=== PATIENT | female | born 1940 | race Two or more races ===

== ENCOUNTER 2023-11-13 21:00 | Emergency (ER) | payer MEDICARE, OTHER, SELFPAY ==
[2023-11-13 21:03] VITALS: BP 188/73; BMI 27.1
[2023-11-13 21:04] VITALS: BP 188/73
[2023-11-13 21:23] LABS: Hematocrit 31.3 % (37.0-47.0); Hemoglobin 10.8 g/dL (12.0-16.0); Mean Corp Hgb Conc. 34.5 g/dL (33.0-37.0); Mean Corpuscular Hgb 27.2 pg (27.0-31.0); Mean Corpuscular Volume 78.8 fL (81.0-99.0); Mean Platelet Volume 11.7 fL (7.4-10.4); Platelet Count 212 10^3/uL (130-400); Red Blood Cell Count 3.97 10^6/uL (4.20-5.40); Red Cell Dist. Width 13.3 % (11.5-14.5)
[2023-11-13 21:44] LABS: ALT (SGPT) 16 U/L (0-35); AST (SGOT) 34 U/L (14-36); Albumin 4.6 g/dl (3.5-5.0); Alkaline Phosphatase 78 U/L (38-126); Blood Urea Nitrogen 21 mg/dl (7-17); Calcium 9.8 mg/dl (8.4-10.2); Carbon Dioxide 24 mmol/L (22-30); Chloride 101 mmol/L (98-107); Estimated Creatinine Clearance 55 ml/min; Glucose 140 mg/dl (70-99); Potassium 4.9 mmol/L (3.5-5.1); Sodium 140 mmol/L (135-145); Total Bilirubin 0.6 mg/dl (0.2-1.3); Total Protein 7.8 g/dl (6.3-8.2); eGFR > 60.00
[2023-11-13 21:53] LABS: Troponin I < 0.012 ng/ml
[2023-11-13 22:00] VITALS: BP 150/50
--- NOTE | 2023-11-13 22:28 | ED.GENMED ---
History of Present Illness
<Karen Poe PA-C - Last Filed: 11/14/23 00:41>
General
Chief Complaint: Chest Pain
Source: patient and family (Daughter and son-in-law at bedside)
Exam Limitations: none
Time Seen by Provider: 11/13/23 22:08
Nursing documentation reviewed up to this point in time: agreed with
History of Present Illness
History of Present Illness:
Patient is an 83-year-old female with history hypertension, hyperlipidemia, diabetes presenting to the emergency department via EMS for evaluation of chest pain. Patient states that she was standing up cooking dinner when she felt a fluttering
sensation in her lower chest/epigastric region. She checked her blood pressure at that time and it was elevated in the 170s/70s. Patient then states that about 30 minutes later when they were sitting down eating dinner she started with a vague
discomfort in her mid chest. Patient denies any radiation of pain into her shoulder, jaw, back. Patient denies any exertional or pleuritic component to pain. She describes it as a constant pain that persisted until she arrived to the emergency
department. Patient denies any associated shortness of breath, lightheadedness, dizziness, nausea, vomiting, or diaphoresis.
At this time�patient is asymptomatic.
Patient walks 1 mile daily and denies any history of exertional chest pain or shortness of breath.
Patient denies any personal or family history of CAD.
Review of Systems
<Karen Poe PA-C - Last Filed: 11/14/23 00:41>
Review of Systems
Allergies reviewed?: Yes
All Other Systems: ROS reviewed and negative except as documented in HPI and ROS
Phy Exam
<Karen Poe PA-C - Last Filed: 11/14/23 00:41>
Physical Exam
Physical Exam:
Vitals: Hypertensive. Afebrile
General: Patient is well appearing, no acute distress. Nontoxic appearing
Skin: Warm and dry, no rashes or lesions
Head: Normocephalic, atraumatic
Eyes: Sclera nonicteric. EOMs intact. No nystagmus.
Throat: Protecting airway
Neck: Normal ROM, no cervical spine tenderness, no meningismus
Cardiac: Regular rate and rhythm, no murmurs. Anterior chest wall nontender to palpation. No overlying rashes
Pulm: Normal respiratory effort, no wheezes, rales, rhonchi heard on exam.
Abdomen: Abdomen soft. No abdominal tenderness. No CVA tenderness
Extremities: No evidence of cyanosis or edema. Great distal pulses
Neuro: AAOx3. CN II-XII intact. No focal neurologic deficits.
Psychiatric: Normal affect.
Scores
<Karen Poe PA-C - Last Filed: 11/14/23 00:41>
Heart Score for Chest Pain Patients
STEMI patient?: No
History: Moderately Suspicious
ECG: Nonspecific Repolarization
Age: >/= 65 years
Risk Factors: >/= 3 Risk Factors or History of CAD
Troponin: </= Normal Limit
Heart Score for Chest Pain Patients: 6
Heart Score Risk: 20.3% MACE over next 6 weeks
Course
<Karen Poe PA-C - Last Filed: 11/14/23 00:41>
Orders/Labs/Results
Orders:
Orders
11/13/23 21:01
EKG [Electrocardiogram (*1)] Urgent
Reason for Study: Chest Pain
11/13/23 21:02
EKG- Treatment ONCE
11/13/23 21:11
Complete Blood Count/No Diff Urgent
Comprehensive Metabolic Panel Urgent
Troponin I Urgent
11/13/23 22:42
CR Chest - 2 Views Urgent
Comment:
Reason For Exam: chest pain
11/13/23 23:24
Troponin I Urgent
11/13/23 23:30
Electrocardiogram (*1) Urgent
Reason for Study: Chest Pain
EKG- Treatment ONCE
Abnormal Lab Results
11/13/23
21:11
RBC 3.97 L 10^6/uL
(4.20-5.40)
Hgb 10.8 L g/dL
(12.0-16.0)
Hct 31.3 L %
(37.0-47.0)
MCV 78.8 L fL
(81.0-99.0)
MPV 11.7 H fL
(7.4-10.4)
BUN 21 H mg/dl
(7-17)
Glucose 140 H mg/dl
(70-99)
11/13/23 21:11
11/13/23 21:11
Vital Signs
Initial and Last Documented VS:
Initial Vital Signs
Temp Pulse Resp BP Pulse Ox
36.5 C 93 16 188/73 100
11/13/23 21:03 11/13/23 21:03 11/13/23 21:03 11/13/23 21:03 11/13/23 21:03
Last Documented Vital Signs
Temp Pulse Resp BP Pulse Ox
36.5 C 63 16 119/68 96
11/13/23 21:03 11/14/23 00:15 11/13/23 21:03 11/14/23 00:00 11/14/23 00:15
<Onesimo Moyer MD - Last Filed: 11/14/23 00:43>
Orders/Labs/Results
Orders:
Orders
11/13/23 21:01
EKG [Electrocardiogram (*1)] Urgent
Reason for Study: Chest Pain
11/13/23 21:02
EKG- Treatment ONCE
11/13/23 21:11
Complete Blood Count/No Diff Urgent
Comprehensive Metabolic Panel Urgent
Troponin I Urgent
11/13/23 22:42
CR Chest - 2 Views Urgent
Comment:
Reason For Exam: chest pain
11/13/23 23:24
Troponin I Urgent
11/13/23 23:30
Electrocardiogram (*1) Urgent
Reason for Study: Chest Pain
EKG- Treatment ONCE
Abnormal Lab Results
11/13/23
21:11
RBC 3.97 L 10^6/uL
(4.20-5.40)
Hgb 10.8 L g/dL
(12.0-16.0)
Hct 31.3 L %
(37.0-47.0)
MCV 78.8 L fL
(81.0-99.0)
MPV 11.7 H fL
(7.4-10.4)
BUN 21 H mg/dl
(7-17)
Glucose 140 H mg/dl
(70-99)
11/13/23 21:11
11/13/23 21:11
Vital Signs
Initial and Last Documented VS:
Initial Vital Signs
Temp Pulse Resp BP Pulse Ox
36.5 C 93 16 188/73 100
11/13/23 21:03 11/13/23 21:03 11/13/23 21:03 11/13/23 21:03 11/13/23 21:03
Last Documented Vital Signs
Temp Pulse Resp BP Pulse Ox
36.5 C 63 16 119/68 96
11/13/23 21:03 11/14/23 00:15 11/13/23 21:03 11/14/23 00:00 11/14/23 00:15
<Karen Poe PA-C - Last Filed: 11/14/23 00:41>
MDM/Problems Addressed
Differential Diagnosis Includes:
Not limited to: Muscular strain, pericarditis, GERD, ACS,
MDM/Problems Addressed:
83-year-old female presenting following approximately 1 hour of substernal chest discomfort while cooking dinner tonight. Not exertional or pleuritic in nature. No associated shortness of breath, dizziness/lightheadedness, nausea, diaphoresis.
Symptoms resolved prior to arrival to emergency department. Mildly hypertensive on arrival, otherwise vital signs are stable. Physical exam as above. Patient is very well-appearing, in no apparent distress. She is asymptomatic at this time with
no complaints. Heart regular rate and rhythm. Lungs are clear bilaterally. Patient is in no respiratory distress and oxygenating well at 98% on room air. Chest wall nontender to palpation. Abdomen is soft and nontender. Patient is perfusing
well with great distal pulses. No focal neurologic deficits. Initial labs obtained in triage show a mild anemia with a hemoglobin of 10.8. Chemistry without any clinically significant abnormalities. Initial troponin is negative. An EKG was
obtained which shows normal sinus rhythm with some nonspecific ST changes although there does appear to be somewhat skewed baseline. Given onset of symptoms�will repeat troponin/EKG and obtain chest x-ray. Will closely monitor and reassess.
Patient is comfortable at this time.
Repeat troponin negative. Repeat EKG shows normal sinus rhythm without any ischemic changes. Nonspecific ST changes no longer present. Initial read of chest x-ray with myself and attending showed no acute abnormalities.
Workup here has been normal. Patient has remained asymptomatic since arrival to emergency department. Very low suspicion for ACS. Given patient's risk factors will place on chest pain hotline for close cardiology follow-up. Return precaution
discussed at length. Patient and patient's family comfortable with plan. Patient seen with attending physician.
Chronic conditions affecting care:
Hypertension, hyperlipidemia
Acute Exacerbation and/or Progression of Chronic Illness:
Acutely hypertensive
<Karen Poe PA-C - Last Filed: 11/14/23 00:41>
*Radiology
Radiology exam reviewed: preliminary read by ED provider (No acute cardiopulmonary process)
*Pulse Oximetry
Patient hypoxic: no
*EKG
Interpreted by ED Provider?: Yes
EKG Intrepretation Date: 11/13/23
Interpretation: abnormal
Comparison EKG: no comparison EKG present
Heart Rate: 87
Rate: normal
Rhythm: sinus
[place]: normal axis
Interval: normal interval
QRS Pattern: normal QRS
Ischemia: non-specific ST changes
*Nail Making Machine Setter Interpretation
Rate: normal
Interpretation: normal
Heart Rate: 63
Rhythm: sinus
*Critical Care Note
Total Time (30-74mins, 75-104mins- exclusive of procedures): Not Applicable
ED Attending Note
<Karen Poe PA-C - Last Filed: 11/14/23 00:41>
-
Portions of this chart may have been created with voice recognition software.� Occasional wrong word or��sound alike� substitutions may have occurred due to the inherent limitations of voice recognition software.
<Onesimo Moyer MD - Last Filed: 11/14/23 00:43>
ED Attending Note
Patient seen and examined by attending physician: Yes
ED Attending Note:
I have seen and evaluated the patient with a [id number] encounter. I have spoken to the advance practicer provider and involved in the medical history, the physical exam, medical decision making.
Evaluation and management service: agree unless noted differently below.
Results interpretation: agree unless noted differently below.
Focused HPI: 83-year-old female with a past medical history of hypertension, hyperlipidemia who presents to the emergency room with her family for evaluation after an episode of chest pain. Patient was getting ready to eat dinner when she had acute
onset of substernal chest pain associated with a 'butterfly' sensation in the epigastric region. She has never had this before and EMS was called to bring patient to the hospital; by the time she arrived in the hospital pain had resolved and she is
now asymptomatic. Total duration of symptoms was less than an hour. No associated palpitations. No associated shortness of breath. No nausea or vomiting. Again, she is asymptomatic here in the emergency room. She denies any known cardiac
history. She is reasonably active and walks about a mile a day including morning and has never had any chest pain or difficulty breathing or limitation in her activity.
Physical exam: Awake and alert. Hypertensive in triage normalized by my assessment. Rest of vitals normal. She has no cardiac rubs gallops or murmurs. Lungs are clear to auscultation bilaterally. No significant tenderness to palpation of the
abdomen. She has no edema in her extremities and good pulses in all extremities.
Medical Decision Makin-year-old female presents with atypical chest pain lasted for less than an hour now resolved. Vitals and exam as above. EKG initially showed some baseline wander, repeat shows sinus rhythm no ischemic changes. Labs are
significant for marginal anemia, troponin undetectable x 2. Chest x-ray reviewed by me shows no acute disease. Suspect this may be GI related but given her age and risk factors I do think that cardiac workup is warranted. Discussed with patient
and family, will refer of ER chest pain hotline for further testing. We did speak about return precautions specifically including return of chest pain. All questions answered.
Discharge Plan
Departure
Patient Disposition: Home (Routine Discharge)
Date of Disposition: 11/14/23
Time of Disposition: 00:18
Patient with high blood pressure during this ER visit?: Yes
Condition: Good
Covid-19: Not Applicable
Discharge Problem:
Chest pain
Instructions: Chest Pain DCA Follow Up, BLOOD PRESSURE, Chest Pain
Referrals:
Maynor Knight MD [Active] - Next open appointment
Speedy Hoyos DO [Family Provider] -
Activity Restrictions/Additional Instructions:
RETURN TO THE EMERGENCY DEPARTMENT WITH ANY CHEST PAIN, SHORTNESS OF BREATH, CHEST PAIN ASSOCIATED WITH EXERTION, DIZZINESS, LIGHTHEADEDNESS, SWEATING, NAUSEA, ANY WORSENING IN CURRENT SYMPTOMS, OR ANY OTHER CONCERNS
-Please monitor your symptoms closely at home. Take it easy until you are seen by cardiology. Stay well-hydrated.
-Continue to take all your medications as prescribed.
-You should follow-up with cardiology for further evaluation/management. You should receive a call from the within the next few days arranging an appointment.
Monitor your symptoms closely and return to the emergency department with any acute worsening/new symptoms.
Interventions
Interventions:
*Risk Screen - Suicide Last Done: 11/13/23 21:03
*General Assessment Last Done: 11/13/23 21:03
*Neglect/Abuse Screening Last Done: 11/13/23 21:03
ED- Fall Risk Assessment Last Done: 11/14/23 00:39
*ED COVID-19 Vaccine History Last Done: 11/13/23 21:03
*Nursing Disposition Last Done: 11/14/23 00:39
ED- Cardiac Assessment Last Done: 11/14/23 00:00
Discharge Date and Time
Discharge Date/Time: 11/14/23 00:39
Print Language: KENYAN
[2023-11-13 23:00] VITALS: BP 150/56
[2023-11-14] VITALS: BP 119/68
[2023-11-14 00:04] LABS: Troponin I < 0.012 ng/ml
== END 2023-11-14 00:39 | disposition home or self-care (01) ==
LOC: EMR 21:00
PROVIDERS: Physician Assistant; EMERGENCY PHYSICIAN Emergency Medicine; FAMILY PHYSICIAN Family Medicine
DX: R07.89 Other chest pain (principal); D64.9 Anemia, unspecified; I10 Essential (primary) hypertension; E78.5 Hyperlipidemia, unspecified; E11.9 Type 2 diabetes mellitus without complications
CPT/HCPCS: 99284; 71046; 80053; 84484; 85027; 93005

== ENCOUNTER → 2023-12-22 08:07 | Outpatient (REF) | payer MEDICARE, OTHER, SELFPAY | LOC: RCS 08:07 | PROVIDERS: ATTENDING PHYSICIAN Internal Medicine Cardiovascular Disease; FAMILY PHYSICIAN Internal Medicine | DX: R07.89 Other chest pain (principal); I10 Essential (primary) hypertension | CPT/HCPCS: 93306 ==

== ENCOUNTER → 2023-12-24 07:07 | Outpatient (REF) | payer MEDICARE, OTHER, SELFPAY | LOC: DHCBC/DCA 07:07 | PROVIDERS: ATTENDING PHYSICIAN Internal Medicine Cardiovascular Disease; FAMILY PHYSICIAN Internal Medicine | DX: R07.89 Other chest pain (principal); I10 Essential (primary) hypertension | CPT/HCPCS: 78452; 93017; A9500; J2785 ==

== ENCOUNTER → 2024-01-02 14:19 | Outpatient (REF) | payer MEDICARE, OTHER, SELFPAY | LOC: RAD 14:19 | PROVIDERS: ATTENDING PHYSICIAN Internal Medicine Cardiovascular Disease; FAMILY PHYSICIAN Internal Medicine | DX: Z86.79 Personal history of other diseases of the circulatory system (principal); I65.23 Occlusion and stenosis of bilateral carotid arteries; I67.2 Cerebral atherosclerosis | CPT/HCPCS: 93880 ==

== ENCOUNTER 2024-11-03 11:55 | Emergency (ER) | payer MEDICARE, OTHER, SELFPAY ==
[2024-11-03] VITALS (10 sets, daily range): BP systolic 121–147; BP diastolic 46–110; BMI 27.7
[2024-11-03] MEDS: DILAUDID 0.5 MG IV (12:04)
--- NOTE | 2024-11-03 12:04 | ED.GENMED ---
History of Present Illness
General
Chief Complaint: Fall
Source: patient
Exam Limitations: none
Time Seen by Provider: 11/03/24 12:00
Nursing documentation reviewed up to this point in time: agreed with except (Right shoulder injury-triage mentions left shoulder issue)
History of Present Illness
History of Present Illness:
84-year-old female with a history of hypertension, hyperlipidemia who presents to the emergency department after a trip and fall with right shoulder pain. Patient reports that she tripped and lost her balance fell forward onto her right arm. She
says she did not hit her head, did not lose consciousness. She complains of severe pain in her right shoulder. She has some tingling in her right hand but no weakness. She denies any headache or neck pain. Denies any rib pain, back pain. Denies
any abdominal pain. Denies any pain in her legs. She denies being on any blood thinners.
Review of Systems
Review of Systems
All Other Systems: ROS reviewed and negative except as documented in HPI and ROS
Respiratory: Denies trouble breathing
Cardiac: Denies chest pain
ABD/GI: Denies abdominal pain, nausea or vomiting
: Denies flank pain
Musculoskeletal: Reports joint pain (Shoulder pain); Denies neck pain or back pain
Neurological: Denies headache
Phy Exam
Physical Exam
Physical Exam:
General: Awake, alert, oriented x3; appears uncomfortable
Head: Normocephalic, atraumatic
Eyes: Conjunctiva normal, pupils equal round and reactive to light bilaterally
Throat: Airway intact, handling secretions
Neck: Trachea midline, no cervical spine tenderness
Lungs: Breathing comfortably with no distress
Heart: Regular rate, no chest wall tenderness
Abd: Soft, non distended, nontender
Back: No signs of trauma the back or flank and no tenderness in the thoracic or lumbar spine
Neuro: Cranial nerves grossly intact, speech fluid, motor and sensory intact to radial, median, ulnar nerve distribution distal right upper extremity
Extremities: Patient has deformity the right shoulder and severe tenderness of the proximal humerus; cannot move right shoulder due to severe pain; no tenderness of the wrist or elbow on the right; she has a strong right radial pulse; rest of
extremities are atraumatic
Scores
Heart Failure Risk
Heart Failure Risk Score: Not Applicable
Heart Score for Chest Pain Patients
STEMI patient?: Not applicable
Withdrawal Assessment of Alcohol
Withdrawal Assessment Completed?: Not applicable
Course
Orders/Labs/Results
Orders:
Orders
11/03/24 11:59
HYDROmorphone [Dilaudid] 0.5 mg .ROUTE .STK-MED ONE
11/03/24 12:00
CR Shoulder - Right Min 2 View Urgent
Comment:
Reason For Exam: shoulder pain s/p fall
11/03/24 12:03
HYDROmorphone [Dilaudid] 0.5 mg IV NOW STA
11/03/24 12:51
Propofol [Diprivan] 20 ml .ROUTE .STK-MED
11/03/24 12:58
CR Shoulder - Right Min 2 View Urgent
Comment: portable
Reason For Exam: reduction
Vital Signs
Initial and Last Documented VS:
Initial Vital Signs
Temp Pulse Resp BP Pulse Ox
36.6 C 88 20 125/110 98
11/03/24 11:57 11/03/24 11:57 11/03/24 11:57 11/03/24 11:57 11/03/24 11:57
Last Documented Vital Signs
Temp Pulse Resp BP Pulse Ox
36.6 C 88 17 145/69 99
11/03/24 14:00 11/03/24 14:00 11/03/24 14:00 11/03/24 14:00 11/03/24 14:00
Procedures
Moderate Sedation
ASA Risk Score: Class II
Chart and allergies reviewed: Yes
Consent for anesthesia obtained: Yes
Time out completed (validating right patient & procedure): Yes
Moderate Sedation Start Time(when first medication is given): 12:55
History of difficult intubation: No
Airway free of obstruction: Yes
Patient has a gag reflex: Yes
Patient is able to open mouth: Yes
Patient has no dentures: Yes
Patient has no loose teeth: Yes
Medication administered by Provider during Moderate Sedation: IV Propofol (mg)
Total dose administered: 60
Time drug administered: 12:55
Moderate Sedation Procedure End Time: 13:10
Joint/Fracture Reduction
Right Shoulder:
Indication for procedure:: shoulder dislocation
Procedure completed by: Onesimo Moyer MD
Consent form signed: Yes
Anesthesia/sedation: Moderate sedation
Injury was: closed
Further treatement: no treatment needed
Post reduction exam: stable
Capillary Refill: normal
Normal distal neurovascular exam?: Yes
MDM/Problems Addressed
Differential Diagnosis Includes:
Shoulder dislocation, shoulder fracture/humeral fracture, shoulder contusion, bursitis, rotator cuff injury
MDM/Problems Addressed:
84-year-old female presents after trip and fall onto her right arm complaining of severe right shoulder pain. Vitals and exam as above. Plan to check x-ray of the shoulder. Pain control. Reassess after the above.
X-ray reviewed by me shows no fracture but findings consistent with dislocation. Will plan for reduction under sedation.
Shoulder reduced without issue under moderate sedation as documented in procedure note. X-ray shows appropriate reduction. She does still have some mild paresthesias in the hand but objective motor and sensory exam is intact. Will monitor after
sedation.
Patient completely awake, feeling better. Stable for discharge, advised to follow-up with orthopedist as an outpatient. Spoke about return precautions all questions answered.
*Radiology
Radiology exam reviewed: preliminary read by ED provider and radiology read reviewed
*Pulse Oximetry
SaO2: 98
Patient hypoxic: no (98%)
*Critical Care Note
Total Time (30-74mins, 75-104mins- exclusive of procedures): Not Applicable
Data Reviewed
Source: patient, family and ambulance crew
ED Attending Note
-
Portions of this chart may have been created with voice recognition software.� Occasional wrong word or��sound alike� substitutions may have occurred due to the inherent limitations of voice recognition software.
Discharge Plan
Departure
Patient Disposition: Home (Routine Discharge)
Date of Disposition: 11/03/24
Time of Disposition: 13:48
Patient with high blood pressure during this ER visit?: Yes
Discharge Problem:
Dislocation of shoulder, right, closed
Instructions: Shoulder Dislocation (DC)
Referrals:
Jori Ugalde MD [Active, Orthopedics]
Referral Note: You should follow-up with the orthopedist within the next 1 to 2 weeksyou can either follow-up with our orthopedist or with your own.
Activity Restrictions/Additional Instructions:
You should maintain the sling on your right arm at all times for the next few weeks until cleared by the orthopedist. It is especially important that you wear this at nighttime. You can remove it to shower but when you do do not move your arm
around try to keep your arm in a neutral position as we discussed. You should follow-up with the orthopedist in the next week or 2 as we discussed. You can take Tylenol or ibuprofen to help with your soreness for the next few days.
Interventions
Interventions:
*Risk Screen - Suicide Last Done: 11/03/24 11:57
*General Assessment Last Done: 11/03/24 11:57
*Neglect/Abuse Screening Last Done: 11/03/24 11:57
*Nursing Disposition Last Done: 11/03/24 14:15
ED-Musculoskeletal Assessment Last Done: 11/03/24 12:00
ED- Neurological Assessment Last Done: 11/03/24 12:00
ED-Skin Assessment Last Done: 11/03/24 12:00
Discharge Date and Time
Discharge Date/Time: 11/03/24 14:33
Print Language: MAORI
== END 2024-11-03 14:33 | disposition home or self-care (01) ==
LOC: EMR 11:55
PROVIDERS: EMERGENCY PHYSICIAN Emergency Medicine; FAMILY PHYSICIAN Internal Medicine
DX: S43.004A Unspecified dislocation of right shoulder joint, initial encounter (principal); W01.0XXA Fall on same level from slipping, tripping and stumbling without subsequent striking against object, initial encounter; I10 Essential (primary) hypertension; E78.00 Pure hypercholesterolemia, unspecified
CPT/HCPCS: 99283; 23650; 96374; 73030

== ENCOUNTER → 2025-02-08 14:17 | Outpatient (REF) | payer MEDICARE, OTHER, SELFPAY | LOC: EMG 14:17 | PROVIDERS: ATTENDING PHYSICIAN Orthopaedic Surgery Hand Surgery; FAMILY PHYSICIAN Internal Medicine | DX: M25.511 Pain in right shoulder (principal); R20.0 Anesthesia of skin; G56.01 Carpal tunnel syndrome, right upper limb; G56.81 Other specified mononeuropathies of right upper limb | CPT/HCPCS: 95886; 95909 ==

== ENCOUNTER 2025-03-01 05:48 | Day surgery (SDC) | payer MEDICARE, OTHER, SELFPAY ==
--- NOTE | 2025-02-28 14:38 | CM ---
Orthopedic Case Management Assessment
Demographics:Patient address has been confirmed, [address] [place] [address], [place] [address].
Living situation: patient lives with daughter and son in law, in a 2 story home with bed and bathroom on 2nd floor, patient is independent with adl's and ambulation, no dme.
Support Person Post Operatively: daughter and son in law
History of
VN: No
SNF: No
Outpatient
Has patient purchased required equipment: patient has sling and will bring to wear after surgery.
PCP: Dr. Pily Hill
Pharmacy: [facility]
Post Operative Discharge Plan: Patient has been scheduled for same day surgery with Dr. Gonzales for TSA, patient lives with daughter and son in law who will transport patient to surgery, patient has sling for after surgical procedure. Home with
daughter and son in law.
[2025-03-01] VITALS (9 sets, daily range): BP systolic 127–165; BP diastolic 52–89; BMI 26.5
[2025-03-01 06:37] LABS: Glucose - Point of Care 113 mg/dl (70-99)
[2025-03-01] MEDS: TYLENOL 1000 MG PO (06:44)
[2025-03-01] MEDS: CELEBREX 200 MG PO (06:45)
[2025-03-01] MEDS: NORMOSOL-R/PLASMALYTE-A 1000 IV (06:50)
[2025-03-01 08:54] LABS: Glucose - Point of Care 104 mg/dl (70-99)
--- NOTE | 2025-03-01 08:56 | W.DS.TRANS ---
DC Summary - [employer]
-
Discharge Instructions:
Sleep Apnea Risk Low
Discharge Diagnosis/Procedures R Reverse TSA Dr Gonzales 03/01/25
Diet Diabetic, Carb Controlled
Activity No strenuous activity
Driving Restrictions No driving
Instructions:
Stand-Alone Forms: SDS Total Shoulder D/C Inst.
Changes to Home Medications: Yes
Discharge Medications:
DC Medications w/original date entered in [employer]
Centrum 1 tab PO DAILY 02/28/25
Held on 03/01/25. Instructions: Resume on 03/09/25.
atorvastatin 10 mg tablet 10 mg PO QPM 02/28/25
bisoprolol fumarate 5 mg tablet 5 mg PO DAILY 02/28/25
cholecalciferol (vitamin D3) 25 mcg (1,000 unit) tablet (Vitamin D3) 25 mcg PO QPM 02/28/25
dorzolamide 2 % eye drops 1 drp ophthalmic (eye) BID both eyes 02/28/25
latanoprost 0.005 % eye drops 1 drp ophthalmic (eye) HS both eyes 02/28/25
magnesium glycinate 480 mg PO DAILY 02/28/25
metformin 500 mg tablet,extended release 24 hr 500 mg PO BID 02/28/25
Saccharomyces boulardii 250 mg capsule (Florastor) 250 mg PO BID #1 cap 03/01/25
acetaminophen 500 mg tablet 1,000 mg (2 x 500 mg) PO QID #0 tabs 03/01/25
amlodipine 5 mg-valsartan 160 mg tablet 1 tab PO DAILY #0 tabs 03/01/25
aspirin 81 mg tablet 81 mg PO BID Blood clot prevention/tx #0 tabs 03/01/25
celecoxib 200 mg capsule 200 mg PO DAILY Anti-inflammatory #14 caps 03/01/25
dexamethasone 4 mg tablet 4 mg PO BID inflammation #6 tabs 03/01/25
docusate sodium 100 mg capsule (Colace) 100 mg PO BID stool softner #1 cap 03/01/25
doxycycline hyclate 100 mg capsule 100 mg PO BID infection prevention #10 caps 03/01/25
famotidine 20 mg tablet 20 mg PO HS GI prophylaxis #30 tabs 03/01/25
gabapentin 300 mg capsule 300 mg PO HS sleep/pain #10 caps 03/01/25
magnesium hydroxide 400 mg/5 mL oral suspension (Milk of Magnesia) 30 ml PO HS PRN constipation #1 mL 03/01/25
ondansetron 4 mg disintegrating tablet 4 mg PO Q6H PRN n/v #20 tabs 03/01/25
sennosides 8.6 mg tablet (Senokot) 17.2 mg (2 x 8.6 mg) PO BID laxative #2 tabs 03/01/25
tramadol 50 mg tablet 50 mg PO Q6H PRN 1 tab moderate pain, 2 if severe #30 tabs 03/01/25
Home Medication Changes
Saccharomyces boulardii 250 mg capsule (Florastor) 250 mg PO BID #1 cap 03/01/25
acetaminophen 500 mg tablet 1,000 mg (2 x 500 mg) PO QID #0 tabs 03/01/25
amlodipine 5 mg-valsartan 160 mg tablet 1 tab PO DAILY #0 tabs 03/01/25
aspirin 81 mg tablet 81 mg PO BID Blood clot prevention/tx #0 tabs 03/01/25
celecoxib 200 mg capsule 200 mg PO DAILY Anti-inflammatory #14 caps 03/01/25
dexamethasone 4 mg tablet 4 mg PO BID inflammation #6 tabs 03/01/25
docusate sodium 100 mg capsule (Colace) 100 mg PO BID stool softner #1 cap 03/01/25
doxycycline hyclate 100 mg capsule 100 mg PO BID infection prevention #10 caps 03/01/25
famotidine 20 mg tablet 20 mg PO HS GI prophylaxis #30 tabs 03/01/25
gabapentin 300 mg capsule 300 mg PO HS sleep/pain #10 caps 03/01/25
magnesium hydroxide 400 mg/5 mL oral suspension (Milk of Magnesia) 30 ml PO HS PRN constipation #1 mL 03/01/25
ondansetron 4 mg disintegrating tablet 4 mg PO Q6H PRN n/v #20 tabs 03/01/25
sennosides 8.6 mg tablet (Senokot) 17.2 mg (2 x 8.6 mg) PO BID laxative #2 tabs 03/01/25
tramadol 50 mg tablet 50 mg PO Q6H PRN 1 tab moderate pain, 2 if severe #30 tabs 03/01/25
Pending Results: No
[2025-03-01] MEDS: ANCEF 5 IV (11:35)
== END 2025-03-01 12:00 | disposition home or self-care (01) ==
LOC: SDS 05:48
PROVIDERS: ATTENDING PHYSICIAN Orthopaedic Surgery Hand Surgery
DX: M75.101 Unspecified rotator cuff tear or rupture of right shoulder, not specified as traumatic (principal); M19.011 Primary osteoarthritis, right shoulder; Z96.611 Presence of right artificial shoulder joint
CPT/HCPCS: 23472; C1776; C1713; 73020; 82962; 86850; 86900; 86901; 87070